=== PATIENT | female | born 1955 | race Caucasian/White ===

== ENCOUNTER 2016-10-25 07:20 | Day surgery (SDC) | payer BC ==
[~2016-10-25 07:20] MED LIST: Acetaminophen TAB* 325 MG PO PRN; Buffered Lidocaine 1% SYR 3ML* 3 ML/SYR SYRINGE INTRADERM ONE
[2016-10-25] MEDS ORDERED: Midazolam* 1 MG/ML 5 ML VIAL (5 MG) ONE (07:46)
[2016-10-25] MEDS ORDERED: fentaNYL* 50 MCG/ML 2 ML VIAL (100 MCG VIAL) ONE (07:46)
[2016-10-25] MEDS ORDERED: Lidocaine 1% MPF* 2 ML VIAL ONE (07:53)
[2016-10-25] MEDS ORDERED: Phenylephrine 2.5% OPTH.SOL* 2 ML BTL ONE (07:53)
[2016-10-25] MEDS ORDERED: Povidone Iodine 5% OPTH* 30 ML BTL ONE (07:53)
[2016-10-25] MEDS ORDERED: Cyclopentolate 1% OPTH.SOL* 2 ML BTL ONE (07:53)
[2016-10-25] MEDS ORDERED: Neomycin/Polymy/Dex OPHTH.OIN* 3.5 GM ONE (07:53)
[2016-10-25] MEDS ORDERED: acetaZOLAMIDE TAB* 250 MG ONE (07:53)
[2016-10-25] MEDS ORDERED: Flurbiprofen 0.03% OPTH.SOL* 2.5 ML BTL ONE (07:53)
[2016-10-25] MEDS ORDERED: Tetracaine 0.5% OPTH.SOL 4 ML* 1 DROP BTL ONE (07:53)
[2016-10-25 09:12] VITALS: BP 110/62
--- NOTE | 2016-10-25 20:56 | OP ---
DATE OF OPERATION: 10/25/16 - [facility] DATE OF : 55 SURGEON: Niles Ross MD ANESTHESIOLOGIST: Elías Youssef MD ANESTHESIA: Monitored anesthesia care. PRE-OP DIAGNOSIS: Cataract of the right eye. POST-OP DIAGNOSIS: Cataract of the right eye. OPERATIVE PROCEDURE: Cataract extraction of the right eye. IMPLANTS: SN60WF 16.5 diopter lens to the right eye. COMPLICATIONS: None. DESCRIPTION OF PROCEDURE: The patient was given phenylephrine 2.5% and cyclopentolate 1% eye drops to the operative eye in the preoperative area. The patient was brought to the operating room where a time-out was taken to identify the correct patient, site and side of surgery. The patient's right eye was prepped and draped in the usual sterile fashion with 5% Betadine. A second time-out was taken to verify the correct patient, site and side of surgery, and correct lens selection. A lid speculum was placed to the right eye. A 1-mm paracentesis blade was used to make a clear corneal incision in the superotemporal position. Preservative-free 1% lidocaine was injected into the anterior chamber. DuoVisc was then injected into the anterior chamber. A 2.75- mm keratome blade was used to make a triplanar incision at the inferotemporal position. A cystotome was used to initiate a capsulorrhexis, which was completed with Utrata forceps in a continuous and curvilinear manner. Hydrodissection of the lens was then performed with BSS on a cannula. The lens could be spun in the capsular bag. The phacoemulsification handpiece was then used with a ztpvlf-dca-kltuklo technique to remove the nucleus in its entirety with 26.02 CDE. The I/A handpiece was then used to remove the residual cortical lens material. DuoVisc was then injected to inflate the capsular bag. The planned SN60WF 16.5 diopter lens was then injected in the capsular bag. The residual DuoVisc was then removed from the eye with I/A handpiece. The corneal incisions were then hydrated and no leaks occurred at physiologic pressure around 20 mmHg per palpation. The lid speculum was then removed and drapes removed. Maxitrol ointment was then placed on to the surface of the operative eye. An adhesive patch and shield were then placed on the operative eye. The patient was taken to the postoperative area in stable condition. [id number]/[facility] #: [id number] MTDRachelle
== END 2016-10-25 09:24 | disposition home or self-care (01) ==
LOC: OREAST 07:20
PROVIDERS: ATTEND Student in an Organized Health Care Education/Training Program
DX: H25.11 Age-related nuclear cataract, right eye (principal); H33.312 Horseshoe tear of retina without detachment, left eye; H35.371 Puckering of macula, right eye
CPT/HCPCS: A9270-GY; J2250; J3010; V2632

== ENCOUNTER 2016-11-01 07:17 | Day surgery (SDC) | payer BC ==
[2016-11-01] MEDS ORDERED: Midazolam* 1 MG/ML 2 ML VIAL (2 MG) ONE ×2 (08:26→08:44)
[2016-11-01 09:24] VITALS: BP 103/65
[2016-11-01] MEDS ORDERED: Phenylephrine 2.5% OPTH.SOL* 2 ML BTL ONE (09:49)
[2016-11-01] MEDS ORDERED: Lidocaine 1% MPF* 2 ML VIAL ONE (09:49)
[2016-11-01] MEDS ORDERED: Tetracaine 0.5% OPTH.SOL 4 ML* 1 DROP BTL ONE (09:49)
[2016-11-01] MEDS ORDERED: acetaZOLAMIDE TAB* 250 MG ONE (09:49)
[2016-11-01] MEDS ORDERED: Flurbiprofen 0.03% OPTH.SOL* 2.5 ML BTL ONE (09:49)
[2016-11-01] MEDS ORDERED: Cyclopentolate 1% OPTH.SOL* 2 ML BTL ONE (09:49)
[2016-11-01] MEDS ORDERED: Neomycin/Polymy/Dex OPHTH.OIN* 3.5 GM ONE (09:49)
[2016-11-01] MEDS ORDERED: Povidone Iodine 5% OPTH* 30 ML BTL ONE (09:49)
--- NOTE | 2016-11-02 04:04 | OP ---
DATE OF OPERATION: 11/01/16 - [facility] DATE OF : 55 SURGEON: Niles Ross MD ANESTHESIOLOGIST: Satnam Parrish MD ANESTHESIA: Monitored anesthesia care. PRE-OP DIAGNOSIS: Cataract of left eye. POST-OP DIAGNOSIS: Cataract of left eye. OPERATIVE PROCEDURE: Cataract extraction of the left eye. IMPLANTS: SN60WF 17.0 diopter lens to the left eye. COMPLICATIONS: None. DESCRIPTION OF PROCEDURE: The patient was given phenylephrine 2.5% and cyclopentolate 1% eye drops to the operative eye in the preoperative area. The patient was brought to the operative room where a time-out was taken to identify the correct patient, site, and side of the surgery. The patient's left eye was prepped and draped in the usual sterile fashion with 5% Betadine. A second time- out was taken to verify the correct patient, site, and side of the surgery and correct lens selection. A lid speculum was then placed to the left eye. A 1-mm paracentesis blade was used to make a clear corneal incision in the inferotemporal position. Preservative-free 1% lidocaine was injected into the anterior chamber. DuoVisc was then injected into the anterior chamber. A 2.75-mm keratome blade was used to make a triplanar incision at the superotemporal position. A cystotome was used to initiate a capsulorrhexis, which was completed with Utrata forceps in a continuous and curvilinear manner. Hydrodissection of the lens was then performed with BSS on a cannula. The lens could be spun in a capsular bag. The phacoemulsification handpiece was then used with a [id number]-vfz-[id number] technique to remove the nucleus in its entirety with a 9.77 CDE. The I/A handpiece was then used to remove the residual cortical lens material. DuoVisc was then injected to inflate the capsular bag. The planned SN60WF 17.0 diopter lens was then injected in a capsular bag. The residual DuoVisc was then removed from the eye with the I/A hand-piece. The corneal incisions were then hydrated and no leaks occurred at physiologic pressure around 20 mmHg per palpation. The lid speculum was then removed and drapes removed. Maxitrol ointment was then placed to the surface of the operative eye. An adhesive patch and shield were then placed on the operative eye. The patient was taken to the postoperative area in stable condition. [id number]/[facility] #: [id number] GULSHAN
== END 2016-11-01 09:22 | disposition home or self-care (01) ==
LOC: OREAST 07:17
PROVIDERS: ATTEND Student in an Organized Health Care Education/Training Program
DX: H26.9 Unspecified cataract (principal)
CPT/HCPCS: A9270-GY; J2250; V2632